=== PATIENT | female | born 1995 | race Caucasian/White ===

== ENCOUNTER 2022-04-13 11:58 | Outpatient (CLI) | payer BC, SELFPAY ==
[2022-04-13 13:46] LABS: HCG Qualitative Serum* Negative (Negative)
[2022-04-15 00:29] LABS: Prolactin 4.5 ng/mL (2.8-29.2)
== END 2022-04-13 11:59 | disposition home or self-care (01) ==
PROVIDERS: Visit Provider Physician Assistant
DX: N64.52 Nipple discharge (principal)
CPT/HCPCS: 84146; 84703

== ENCOUNTER 2022-04-21 10:50 | Outpatient (CLI) | payer BC, SELFPAY ==
--- NOTE | 2022-04-21 11:15 | CRLHL7_ITS ---
For Patients: As a result of the Cures Act, medical imaging exams and procedure reports are released immediately into your electronic medical record. You may view this report before your referring provider. If you have questions, please contact your health care provider. LEFT BREAST ULTRASOUND CLINICAL HISTORY: LEFT breast nipple discharge. COMPARISON: None. TECHNIQUE: Real-time ultrasound imaging of LEFT breast with imaging documentation. FINDINGS: Targeted sonogram to the subareolar LEFT breast performed. Normal dense fibroglandular tissue noted with incidental multi duct ectasia. No intraductal nodule or solid mass. No fluid collection. IMPRESSION: Normal dense fibroglandular tissue LEFT breast subareolar region. No evidence of malignancy or papilloma. RECOMMENDATIONS: Clinical follow-up. Age appropriate screening mammography. Results and recommendations were discussed with the patient at the time of the exam. BI-RADS Category 2: Benign A lay language report of this examination will be provided to the patient. Dictated by Dagoberto Adhikari MD @ 04/21/2022 11:34:42 AM jj/Dictated by: Dagoberto Adhikari MD @ 04/21/2022 11:34:00 AM (Electronically Signed)
== END 2022-04-21 10:51 | disposition home or self-care (01) ==
LOC: US 10:51
PROVIDERS: Visit Provider Physician Assistant
DX: N64.52 Nipple discharge (principal); R92.8 Other abnormal and inconclusive findings on diagnostic imaging of breast
CPT/HCPCS: 76642

== ENCOUNTER 2022-11-02 08:02 | Outpatient (CLI) | payer BC, SELFPAY ==
--- NOTE | 2022-11-02 08:15 | CRLHL7_ITS ---
For Patients: As a result of the Cures Act, medical imaging exams and procedure reports are released immediately into your electronic medical record. You may view this report before your referring provider. If you have questions, please contact your health care provider. LEFT BREAST ULTRASOUND CLINICAL HISTORY: LEFT breast discharge. COMPARISON: 04/21/2022 TECHNIQUE: Real-time ultrasound imaging of LEFT breast with imaging documentation. FINDINGS: Targeted sonogram to the periareolar LEFT breast performed. Dense fibroglandular tissue noted with multi duct ectasia. No intraductal nodule or solid mass. No abscess or fibrocystic change. IMPRESSION: Dense fibroglandular tissue and benign multi duct ectasia beneath the LEFT nipple. No evidence of papilloma. RECOMMENDATIONS: Clinical follow-up. Consider modifying contraceptive medication or discontinuing control medicines as a trial regarding tenderness/discharge. Results and recommendations were discussed with the patient at the time of the exam. BI-RADS Category 2: Benign Dictated by Dagoberto Adhikari MD @ 11/02/2022 9:01:35 AM PT/Dictated by: Dagoberto Adhikari MD @ 11/02/2022 9:01:00 AM (Electronically Signed)
== END 2022-11-02 08:03 | disposition home or self-care (01) ==
PROVIDERS: PCP Physician Assistant; Visit Provider Physician Assistant
DX: N64.52 Nipple discharge (principal)
CPT/HCPCS: 76642

== ENCOUNTER 2023-03-31 10:41 | Outpatient (CLI) | payer BC, SELFPAY ==
[2023-03-31 14:08] LABS: Chlamydia DNA Amplified* NOT DETECTED (No Detected); GC DNA Amplified* NOT DETECTED (No Detected)
== END 2023-03-31 10:42 | disposition home or self-care (01) ==
PROVIDERS: Visit Provider Physician Assistant
DX: N93.0 Postcoital and contact bleeding (principal)
CPT/HCPCS: 82670; 83001; 84146; 84403; 84443; 87491; 87591

== ENCOUNTER 2023-04-27 14:36 | Outpatient (CLI) | payer BC, SELFPAY ==
--- NOTE | 2023-04-27 15:00 | CRLHL7_ITS ---
For Patients: As a result of the Century Cures Act, medical imaging exams and procedure reports are released immediately into your electronic medical record. You may view this report before your referring provider. If you have questions, please contact your health care provider. INDICATION: Postcoital and contact bleeding COMPARISON: none TECHNIQUE: 2D mcdowell scale and color Doppler images were acquired of the pelvis using a transabdominal and transvaginal approach. FINDINGS: Sonographic images demonstrate a normal size and smooth outer contour of the uterus. Uterus measures 7.8 cm in length by 2.9 cm in AP diameter by 3.8 cm in transverse dimension. The myometrium has a normal uniform echotexture. The endometrial lining appears normal and measures 3 mm in composite thickness. The right ovary measures 3.3 x 2.8 x 3.6 cm in size and the left ovary measures 5.2 x 2.3 x 2.9 cm. Left ovarian volume 18 cc. Right ovarian volume is 17.3 cc. Hyperechoic focus within the left ovary measuring 7 x 7 x 7 millimeters. Multiple ovarian follicles are present bilaterally. There is a peripherally calcified cyst within the right ovary measuring 2.0 x 1.6 x 1.8 cm. The ovaries demonstrate normal arterial and venous blood flow on color Doppler analysis. There are no suspicious fluid collections within the cul-de-sac. IMPRESSION: Ovarian volume increased bilaterally with numerous ovarian follicles suggesting PCOS. Possible ovarian dermoids measuring up to 2 cm. No excess pelvic free fluid. No uterine fibroid. Endometrium normal. Dictated by Dagoberto Adhikari MD @ 04/28/2023 3:09:01 PM (Electronically Signed)
== END 2023-04-27 14:37 | disposition home or self-care (01) ==
LOC: US 14:37
PROVIDERS: Visit Provider Physician Assistant
DX: N93.0 Postcoital and contact bleeding (principal); N83.00 Follicular cyst of ovary, unspecified side
CPT/HCPCS: 76830

== ENCOUNTER 2023-06-28 08:30 | Outpatient (CLI) | payer BC, SELFPAY | END 2023-06-28 08:31 | disposition home or self-care (01) | LOC: NFLDREF 07-01 07:08 | PROVIDERS: Visit Provider Physician Assistant | DX: E28.2 Polycystic ovarian syndrome (principal) | CPT/HCPCS: 80061; 83498; 83525 ==

== ENCOUNTER 2023-06-28 08:35 | Outpatient (CLI) | payer BC, SELFPAY ==
--- NOTE | 2023-06-28 08:45 | CRLHL7_ITS ---
For Patients: As a result of the Century Cures Act, medical imaging exams and procedure reports are released immediately into your electronic medical record. You may view this report before your referring provider. If you have questions, please contact your health care provider. INDICATION: PCOS COMPARISON: none TECHNIQUE: 2D mcdowell scale and color Doppler images were acquired of the pelvis using a transabdominal and transvaginal approach. FINDINGS: Sonographic images demonstrate a normal size and smooth outer contour of the uterus. Uterus measures 7.2 cm in length by 3.4 cm in AP diameter by 4.8 cm in transverse dimension. The myometrium has a normal uniform echotexture. The endometrial lining appears normal and measures 5 mm in composite thickness. The right ovary measures 5.0 x 2.5 x 3.0 cm in size and the left ovary measures 4.3 x 1.8 x 2.4 cm. Hypoechoic right ovarian cyst with a peripheral rim of increased echotexture measuring 2.1 x 1.8 x 1.9 cm, unchanged from the prior study. Multiple ovarian follicles are noted bilaterally. The ovaries demonstrate normal arterial and venous blood flow on color Doppler analysis. There are no suspicious fluid collections within the cul-de-sac. IMPRESSION: No significant interval change in the hypoechoic structure within the right ovary with a peripheral rim of increased echogenicity measuring 2.1 cm. No uterine fibroid. Normal endometrium. Enlarged right ovary with multiple follicles compatible with history of PCOS. Dictated by Dagoberto Adhikari MD @ 06/28/2023 11:16:08 AM (Electronically Signed)
== END 2023-06-28 08:36 | disposition home or self-care (01) ==
LOC: US 08:36
PROVIDERS: Visit Provider Physician Assistant
DX: E28.2 Polycystic ovarian syndrome (principal); N88.8 Other specified noninflammatory disorders of cervix uteri
CPT/HCPCS: 76830; 76856; 80061